=== PATIENT | female | born 1945 | race Caucasian/White ===

== ENCOUNTER 2019-09-23 09:18 | Outpatient (CLI) | payer MEDICARE, OTHER, SELFPAY ==
--- NOTE | 2019-09-23 09:28 | MM_ITS ---
WS: [id number] BILATERAL SCREENING DIGITAL MAMMOGRAM WITH CAD HISTORY: SCREENING COMPARISON: 12/25/2016 and 11/18/2013 Bilateral CC and MLO views submitted. Computer aided detection analyzed. Breast composition: There are scattered areas of fibroglandular density. No suspicious masses, microc alcifications or architectural distortion. MM/[place] [id number] IMPRESSION: BI-RADS: 1-Negative FOLLOW UP: 1 Year Follow-up
== END 2019-09-23 09:19 | disposition home or self-care (01) ==
LOC: RADSHAW 09:26
PROVIDERS: PCP Nurse Practitioner Family; Visit Provider Nurse Practitioner Family
DX: Z12.31 Encounter for screening mammogram for malignant neoplasm of breast (principal)
CPT/HCPCS: 77067

== ENCOUNTER 2022-12-04 07:39 | Outpatient (CLI) | payer MEDICARE, OTHER, SELFPAY ==
[2022-12-04 08:02] VITALS: BMI 33.5
--- NOTE | 2022-12-04 08:18 | ECG_ITS ---
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 Interpretive Statements NAME OF STUDY: EXERCISE SESTAMIBI STRESS TEST INDICATION: Chest Pain Baseline blood pressure of 188/91 mm Hg, heart rate 91 beats per minute and oxygen saturation 98%. EKG showed sinus rhythm, normal axis with poor anterior R wave progression. The patient exercised for 3 minutes and 18 seconds on a standard Miller protocol. Patient attained a maximum heart rate of 132 beats per minute(91% of the maximum predicted heart rate) with a blood pressure at the peak exercise of 205/89 mm Hg and saturation of 98%. The EKG at the peak exercise revealed sinus tachycardia with no significant ST-T wave changes. Patient did not have any chest pain or any significant arrhythmis with the exercise. Study was terminated due to maximal effort. During the recovery phase, there were no new changes. Blood pressure at the end of the recovery phase was 185/89 mm Hg with a heart rate of 89 beats per minute and oxygen saturation of 98%. CONCLUSION: 1. Normal EKG response to treadmill exercise. 2. No exercise-induced chest pain or cardiac arrhythmia. 3. Fair exercise tolerance for age, attained a maximum of 4.6 METs. 4. Baseline hypertension with normal response to exercise. 5. Perfusion scan will be documented separately. Electronically Signed On 12-04-2022 16:52:10 CDT by Columba Ni M.D. [id number]
--- NOTE | 2022-12-04 08:19 | NMCV_ITS ---
NM brenda perf SPECT r/s* [id number] Johanna Bueno Age: 77 Gender: F : 1945 Exam Date: 12/04/2022 09:07 Ordering Phys: Ketty Bertrand INVENTORY CHECKER Technologist: SERA Paz Exam Location: [facility] Indications: CHEST PAIN STRESS TEST Please see separate stress test report in [facility] for full findings IMAGE PROTOCOL Rest/Stress 1 Exercise Day Radiopharmaceutical Dose (mCi) Administration Site Administered by Rest: Tc-99m 10.9 IV SERA Young Sestamibi Stress:Tc-99m 32.6 IV SERA Paz Sestamikitty Rest: 04-Dec-2022 60 Discovery 630 Stress: 04-Dec-2022 30 Discovery 630 Radiopharmaceutical was injected at 87 % maximum heart rate. Images obtained in supine and prone position. SPECT RESULTS Technical Quality: Excellent Raw Data Analysis: Normal Image Corrections: No attenuation or motion correction applied Summed Stress Score: 0 Summed Rest Score: 0 Summed Difference Score: 0 PERFUSION FINDINGS SPECT images demonstrate homogeneous tracer distribution throughout the myocardium. FUNCTIONAL RESULTS (calculated via Gated SPECT) Stress Image LV EF (%): 71 Stress EDV (mL):93 TID: 1.04 Stress ESV (mL):27 FUNCTIONAL FINDINGS: The left ventricle is normal in size. Transient Ischemia Dilatation of 1. The left ventricular ejection fraction is normal with a value of 71%. There is normal left ventricular wall thickening. Normal end-diastolic and end-systolic volumes. IMPRESSIONS 1. Myocardial perfusion imaging is normal. 2. Overall left ventricular systolic function is normal without regional wall motion abnormalities, LVEF=71%. 3. EKG portion of the study will be reported separately. 4. Scan indicates low risk for cardiac events. Columba Ni MD (Electronically Signed) Final Date: 04 December 2022 16:46 S
[2022-12-04 10:00] VITALS: BP 185/89; PULSE 97
== END 2022-12-04 07:40 | disposition home or self-care (01) ==
LOC: CDL 07:42
PROVIDERS: PCP Nurse Practitioner Family; Visit Provider Nurse Practitioner Family
DX: R07.89 Other chest pain (principal)
CPT/HCPCS: 36415; 78452; 93017; A9500

== ENCOUNTER 2025-03-23 16:55 | Emergency (ER) | payer MEDICARE, OTHER, SELFPAY ==
[2025-03-23] VITALS (12 sets, daily range): BP systolic 125–155; BP diastolic 66–79; PULSE 9–92; RESP 16–17; TEMP 36.8; O2SAT 92–95; BMI 30.9
--- NOTE | 2025-03-23 16:58 | XRR_ITS ---
PROCEDURE INFORMATION: Exam: XR Chest Exam date and time: 03/23/2025 5:17 PM Age: 79 years old Clinical indication: Pain; Chest pressure; Additional info: Chest pain TECHNIQUE: Imaging protocol: Radiologic exam of the chest. Views: 1 view. COMPARISON: No relevant prior studies available. FINDINGS: Lungs: Mild left basilar opacity/atelectasis. Pleural spaces: Unremarkable. No pleural effusion. No pneumothorax. Heart/Mediastinum: Unremarkable. No cardiomegaly. Bones/joints: Unremarkable. XR/XR chest 1V portable [id number] IMPRESSION: Mild opacities at the left lung base.
--- OUTSIDE RECORDS SUMMARY | 2025-03-23 16:58 | XMS_ITS | Encounter Summary ---
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) Social History Tobacco Use Types Packs/Day Years Used Date Smoking Tobacco: Never Assessed Comments Unknown Sex and Gender Information Value Date Recorded Sex Assigned at Not on file 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
--- OUTSIDE RECORDS SUMMARY | 2025-03-23 16:58 | XMS_ITS | Encounter Summary ---
Author Organization [facility] Address [address] [place] [address] Care Team Providers Care Concrete Tester Name Role Phone Ten Brown MD Primary Care Provider [phone] Encounter Details Date Type Department Care Team (Latest Contact Info) Description 06/15/2002 Outpatient Historical [facility] [address] [place] [address] Evans Chacon MD NO ADDRESS ON FILE POSTMENOPAUSAL BLEEDING (Primary Dx) Social History Tobacco Use Types Packs/Day Years Used Date Smoking Tobacco: Never Assessed Comments Unknown Sex and Gender Information Value Date Recorded Sex Assigned at Not on file 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
--- OUTSIDE RECORDS SUMMARY | 2025-03-23 16:58 | XMS_ITS | Encounter Summary ---
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) Social History Tobacco Use Types Packs/Day Years Used Date Smoking Tobacco: Never Assessed Comments Unknown Sex and Gender Information Value Date Recorded Sex Assigned at Not on file 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
--- OUTSIDE RECORDS SUMMARY | 2025-03-23 16:58 | XMS_ITS | Encounter Summary ---
Author Organization [facility] Address [address] [place] [address] Care Team Providers Care Level Glass Vial Filler Name Role Phone Ten Brown MD Primary Care Provider [phone] Encounter Details Date Type Department Care Team (Latest Contact Info) Description 01/08/2007 Outpatient [facility] Dermatology- [facility] [place] [address] [place] [address] Evgeny Kaye MD NO ADDRESS ON FILE Benign Neoplasm of Skin of Other and Unspecified Parts of Face (Primary Dx) Social History Tobacco Use Types Packs/Day Years Used Date Smoking Tobacco: Never Assessed Comments Unknown Sex and Gender Information Value Date Recorded Sex Assigned at Not on file 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
--- OUTSIDE RECORDS SUMMARY | 2025-03-23 16:58 | XMS_ITS | Encounter Summary ---
Author Organization [facility] Address [address] [place] [address] Care Team Providers Care Body Joiner Name Role Phone Ten Brown MD Primary Care Provider [phone] Encounter Details Date Type Department Care Team (Latest Contact Info) Description 05/03/2000 Outpatient [facility] Dermatology- [facility] [place] [address] [place] [address] Evgeny Kaye MD NO ADDRESS ON FILE Actinic keratosis (Primary Dx) Social History Tobacco Use Types Packs/Day Years Used Date Smoking Tobacco: Never Assessed Comments Unknown Sex and Gender Information Value Date Recorded Sex Assigned at Not on file 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
--- OUTSIDE RECORDS SUMMARY | 2025-03-23 16:58 | XMS_ITS | Encounter Summary ---
Author Organization [facility] Address [address] [place] [address] Care Team Providers Care Duty Officer Name Role Phone Ten Brown MD Primary Care Provider [phone] Encounter Details Date Type Department Care Team (Latest Contact Info) Description 01/26/2005 Outpatient [facility] Dermatology- [facility] [place] [address] [place] [address] Evgeny Kaye MD NO ADDRESS ON FILE ACTINIC KERATOSIS (Primary Dx); SEBACEOUS CYST; Benign anselmo skin trunk Social History Tobacco Use Types Packs/Day Years Used Date Smoking Tobacco: Never Assessed Comments Unknown Sex and Gender Information Value Date Recorded Sex Assigned at Not on file 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
--- OUTSIDE RECORDS SUMMARY | 2025-03-23 16:58 | XMS_ITS | Encounter Summary ---
Author Organization [facility] Address [address] [place] [address] Care Team Providers Care Cutter And Paster Press Clippings Name Role Phone Ten Brown MD Primary Care Provider Reason for Referral * Outpatient Services (Routine) - Closed Specialty Diagnoses / Procedures Referred By Contac t Referred To Contact Diagnoses Pain Procedures XR FLUORO LESS THAN 1 HOUR Nany Sherman MD [address] [address] Phone: tel: fax: [facility] Pre-Registration [place] CALL TO MAKE APPOINTMENT ONLY [address] [place] [address] Phone: tel: fax: Referral ID Status Reason Start Date Expiration Date V isits Requested Visits Authorized [id number] Closed Other 02/04/2017 03/07/2018 1 1 UDER OPERATOR Encounter Details Date Type Department Care Team (Late st Contact Info) Description 02/04/2017 Ancillary Orders [facility] Radiology OR [address] [place] [address] Nany Sherman MD [address] [address] Pain Social History Tobacco Use Types Packs/Day Years Used Date Smoking Tobacco: Never Smokeless Tobacco: Never Alcohol Use Standard Drinks/Week Comments No 0 (1 standard drink = 0.6 oz pur e alcohol) Comments No Sex and Gender Information Value Date Recorded Sex Assigned at Not on file 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 Exam was auto-finalized. us Nany Sherman MD DIAGNOSTIC IMAGING ORDERAB LES Final Result documented in this encounter Visit Diagnoses Diagnosis Pain Generalized pain Pain Generalized pain documented in this encounter Care Teams Cutter And Paster Press Clippings Relationship Specialty Start Date End Date Ten Brown MD [address] [place] [address] PCP - General 05/14/08 documented as of this encounter
--- OUTSIDE RECORDS SUMMARY | 2025-03-23 16:58 | XMS_ITS | Encounter Summary ---
Author Organization [facility] Address [address] [place] [address] Care Team Providers Care Rn Endoscopy Name Role Phone Ten Brown MD Primary Care Provider [phone] Encounter Details Date Type Department Care Team (Latest Contact Info) Description 05/11/1997 Outpatient [facility] Dermatology- [facility] [place] [address] [place] [address] Evgeny Kaye MD NO ADDRESS ON FILE Actinic keratosis (Primary Dx); Benign neoplasm of skin, site unspecified Social History Tobacco Use Types Packs/Day Years Used Date Smoking Tobacco: Never Assessed Comments Unknown Sex and Gender Information Value Date Recorded Sex Assigned at Not on file 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
--- OUTSIDE RECORDS SUMMARY | 2025-03-23 16:58 | XMS_ITS | Encounter Summary ---
Author Organization [facility] Address [address] [place] [address] Care Team Providers Care Life Insurance Underwriter Name Role Phone Ten Brown MD Primary Care Provider [phone] Encounter Details Date Type Department Care Team (Latest Contact Info) Description 03/03/2001 Outpatient [facility] Dermatology- [facility] [place] [address] [place] [address] Evgeny Kaye MD NO ADDRESS ON FILE Benign anselmo skin trunk (Primary Dx); SEBORRHEIC KERATOSIS NOS; PERS HX SKIN MALIGNANCY NEC; Inflamed seborr keratos Social History Tobacco Use Types Packs/Day Years Used Date Smoking Tobacco: Never Assessed Comments Unknown Sex and Gender Information Value Date Recorded Sex Assigned at Not on file 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 Gender Identity Not on file Sexual Orientation Not on file documented as of this encounter Plan of Treatment Not on file documented as of this encounter Visit Diagnoses Diagnosis Benign anselmo skin trunk- Primary Benign neoplasm of skin of trunk, except scrotum Other seborrheic keratosis Personal history of other malignant neoplasm of skin Inflamed seborr keratos Inflamed seborrheic keratosis documented in this encounter Care Teams Life Insurance Underwriter Relationship Specialty Start Date End Date Ten Brown MD [address] [place] [address] PCP - General 05/14/08 documented as of this encounter
--- OUTSIDE RECORDS SUMMARY | 2025-03-23 16:58 | XMS_ITS | Clinical Summary ---
Author Organization [facility] Address [address] [place] [address] Care Team Providers Care Second Worker Name Role Phone Ten Brown MD Primary Care Provider [phone] Allergies No known active allergies Medications hydrochlorothiaz satya 25 mg Oral tablet Take 25 mg by mouth daily. Active calcium-vitamin D3 (CALTRATE 600+D) 600 mg(1,500mg) -200 unit Tablet Take 1 Tablet by mouth daily. Active lysine 1,000 mg Tablet Take 1,000 mg by mouth daily parts inspector. Active LACTOBACILLUS COMBINATION NO.8 (ADULT PROBIOTIC ORAL) Take 1 Capsule by mouth daily parts inspector. Active acetaminophen (TYLENOL) 500 mg tablet Take 500 mg by mouth every 6 hours as needed. Active HYDROcodone-acet aminophen (NORCO) 7.5-325 mg Tablet Take 1 Tablet by mouth every 6 hours as needed for Pain, Moderate. Max Daily Amount: 4 Tablets 20 Tablet 01/31/2017 Active Active Problems Problem Noted Date Diagnosed Date Actinic keratosis 05/14/2008 Other seborrheic keratosis 05/14/2008 Intradermal nevus 05/14/2008 Social History Tobacco Use Types Packs/Day Years Used Date Smoking Tobacco: Never Smokeless Tobacco: Never Tobacco Cessation:Counseling Given: No Alcohol Use Standard Drinks/Week Comments No 0 (1 standard drink = 0.6 oz pur e alcohol) Comments No Sex and Gender Information Value Date Recorded Sex Assigned at Not on file Legal Sex Female 4:21 AM PAPERHANGER Gender Identity Not on file Sexual Orientation Not on file Last Filed Vital Signs Vital Sign Reading Time Taken Comments Blood Pressure 183/92 02/11/2017 9:27 AM PAPERHANGER Pulse 65 02/11/2017 9:27 AM PAPERHANGER Temperature 36.6 C (97.9 F) 01/31/2017 2:30 PM PAPERHANGER Respiratory Rate 20 01/31/2017 3:00 PM PAPERHANGER Oxygen Saturation 98% 01/31/2017 3:00 PM PAPERHANGER Inhaled Oxygen Concentration - - Weight 77.1 kg (169 lb 15.6 oz) 02/11/2017 9:27 AM PAPERHANGER Height 167.6 cm (5' 6 ) 02/11/2017 9:27 AM PAPERHANGER Body Mass Index 27.43 02/11/2017 9:27 AM PAPERHANGER Plan of Treatment Health Maintenance Due Date Last Done Comments DTAP/TDAP/TD VACCINES (1 - Tdap) 06/24/1966 PNEUMOCOCCAL VACCINE 50+ YEARS (1 of 1 - PCV) 06/24/18 98 ZOSTER VACCINE (1 of 2) 06/24/1997 OSTEOPOROSIS SCREENING 06/24/2012 RSV VACCINE (60+ or ) (1 - 1-dose 75+ series) 06/24/2022 INFLUENZA VACCINE (#1) [address] [place] [address] MEDICARE PART A AND B GENERIC PAYOR Advance Directives For more information, please contact: [phone] * Full Code (Latest Code Status on File) Date Activated Date Inactivated Comments 01/31/2017 1:25 PM 01/31/2017 6:05 PM Care Teams Second Worker Relationship Specialty Start Date End Date Ten Brown MD [address] [place] [address] PCP - General 05/14/08
--- OUTSIDE RECORDS SUMMARY | 2025-03-23 16:58 | XMS_ITS | Encounter Summary ---
Author Organization [facility] Address [address] [place] [address] Care Team Providers Care Bottle Washer Name Role Phone Ten Brown MD Primary Care Provider [phone] Encounter Details Date Type Department Care Team (Latest Contact Info) Description 12/27/2006 Outpatient Historical [facility] Dermatology- [facility] [place] [address] [place] [address] Evgeny Kaye MD NO ADDRESS ON FILE Actinic Keratosis (Primary Dx); Benign Neoplasm of Skin of Other and Unspecified Parts of Face; Other Seborrheic Keratosis Social History Tobacco Use Types Packs/Day Years Used Date Smoking Tobacco: Never Assessed Comments Unknown Sex and Gender Information Value Date Recorded Sex Assigned at Not on file 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
--- OUTSIDE RECORDS SUMMARY | 2025-03-23 16:58 | XMS_ITS | Encounter Summary ---
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) Social History Tobacco Use Types Packs/Day Years Used Date Smoking Tobacco: Never Assessed Comments Unknown Sex and Gender Information Value Date Recorded Sex Assigned at Not on file Legal Sex Female 4:21 AM INVENTORY AND PRICING ASSOCIATE Gender Identity Not on file Sexual Orientation Not on file documented as of this encounter Plan of Treatment Not on file documented as of this encounter Visit Diagnoses Diagnosis Other and unspecified malignant neoplasm of skin of other and unspecified parts of face- Primary documented in this encounter Care Teams Ornamental Ironworking Supervisor Relationship Specialty Start Date End Date Ten Brown MD [address] [place] [address] PCP - General 05/14/08 documented as of this encounter
--- OUTSIDE RECORDS SUMMARY | 2025-03-23 16:58 | XMS_ITS | Clinical Summary ---
Author Organization [facility] Address [address] [facility] Attn: Epic Prelude ADT EDUARD RUIZ [id number] Care Team Providers Care Clinical Scientist Name Role Phone Ten Brown MD Primary Care Provider [phone] Allergies No known active allergies Medications lysine 1,000 mg Tablet Take 1,000 mg by mouth daily early childhood associate. 01/28/2017 Active acetaminophen (TYLENOL) 500 mg tablet Take 500 mg by mouth every 6 hours as needed. 01/28/2017 Active lactobacillus combination no.8 (ADULT PROBIOTIC ORAL) Take 1 Capsule by mouth daily early childhood associate. 01/28/2017 Active calcium-vitamin D3 (CALTRATE 600+D) 600 mg-5 mcg (200 unit) Tablet Take 1 Tablet by mouth daily. 01/28/2017 Active HYDROcodone-acet aminophen (NORCO) 7.5-325 mg Tablet Take 1 Tablet by mouth every 6 hours as needed for Pain, Moderate. Max Daily Amount: 4 Tablets 20 Tablet 0 01/31/2017 Active Active Problems Problem Noted Date Diagnosed Date Other seborrheic keratosis 05/14/2008 Actinic keratosis 05/14/2008 Intradermal nevus 05/14/2008 Social History Tobacco Use Types Packs/Day Years Used Date Smoking Tobacco: Never Smokeless Tobacco: Never Alcohol Use Standard Drinks/Week Comments No 0 (1 standard drink = 0.6 oz pur e alcohol) Comments Unknown Sex and Gender Information Value Date Recorded Sex Assigned at Not on file Legal Sex Female 5:06 PM REGISTERED NURSE CARDIAC Gender Identity Not on file Sexual Orientation Not on file Last Filed Vital Signs Vital Sign Reading Time Taken Comments Blood Pressure 183/92 02/11/2017 9:27 AM REGISTERED NURSE CARDIAC Pulse 65 02/11/2017 9:27 AM REGISTERED NURSE CARDIAC Temperature 36.6 C (97.9 F) 01/31/2017 2:30 PM REGISTERED NURSE CARDIAC Respiratory Rate 20 01/31/2017 3:00 PM REGISTERED NURSE CARDIAC Oxygen Saturation - - Inhaled Oxygen Concentration - - Weight 77.1 kg (169 lb 15.6 oz) 02/11/2017 9:27 AM REGISTERED NURSE CARDIAC Height 167.6 cm (5' 6 ) 02/11/2017 9:27 AM REGISTERED NURSE CARDIAC Body Mass Index 27.43 02/11/2017 9:27 AM REGISTERED NURSE CARDIAC Plan of Treatment Health Maintenance Due Date Last Done Comments DTAP/TDAP/TD VACCINES (1 - Tdap) 06/24/1966 PNEUMOCOCCAL VACCINE 50+ YEARS (1 of 1 - PCV) 06/24/18 98 ZOSTER VACCINE (1 of 2) 06/24/1997 OSTEOPOROSIS SCREENING 06/24/2012 RSV VACCINE (60+ or ) (1 - 1-dose 75+ series) 06/24/2022 INFLUENZA VACCINE (#1) 2024 Care Teams Clinical Scientist Relationship Specialty Start Date End Date Ten Brown MD [address] [place] [address] PCP - General 05/14/08
[2025-03-23 17:22] LABS: Hematocrit 38.6 % (36-47); Hemoglobin 13.30 g/dL (11.27-16.99); Mean Corpuscular HGB Conc 34.5 g/dL (30-55); Mean Corpuscular Hemoglobin 29.2 pg (27-33); Mean Corpuscular Volume 84.8 fl (85-98); Nucleated Red Blood Cells % 0 %; Platelet Count 242 10^3/cmm (157-399); Red Blood Count 4.55 10^6/uL (3.85-5.65); White Blood Count 12.48 10^3/uL (3.29-11.43)
--- NOTE | 2025-03-23 17:28 | W.ED.CHESTPA ---
HPI - Chest Pain General: Chief Complaint: Chest Pain Stated Complaint: buring and pain in chest Time Seen by Provider: 03/23/25 17:13 History of Present Illness: 79-year-old female presents emergency room complaining of epigastric and chest comfort. She has had this intermittently for a few weeks. She has previously seen her primary care doctor started omeprazole symptoms resolved since she stopped it began to resume again she has noted that with particular foods especially acidic foods hot or spicy foods that worsen that she has not noticed an association with exertion. No radiation of the pain no shortness of breath she had 1 episode of vomiting earlier today no coffee-ground emesis or hematemesis Associated symptoms: Reports abdominal pain, nausea and vomiting (X 1); Deny dyspnea or fever(s) Related Data Allergies Allergy/AdvReac Type Severity Reaction Status Date / Time SHOAIB Inhibitors Allergy Unknown Verified 12/04/22 08:20 Review of Systems Const: Denies: fever(s) or chills Card: Reports: chest pain Resp: Denies: dyspnea GI: Reports: abdominal pain, nausea and vomiting (X 1); Denies: hematemesis or coffee ground emesis : Denies: dysuria, urinary frequency or urinary urgency Musc: Denies: neck pain or back pain Skin/Breast: Denies: rash Physical Exam Const: COMMON NORMALS: no acute distress GENERAL APPEARANCE: cooperative and comfortable ORIENTATION/CONSCIOUSNESS: Yes awake, Yes oriented to person, Yes oriented to place and Yes oriented to time HENMT: COMMON NORMALS: normocephalic, atraumatic and hearing grossly normal bilaterally HEAD & SCALP: normocephalic and atraumatic Resp: COMMON NORMALS: normal respiratory effort, No retractions, No use of accessory muscles and clear to auscultation bilaterally AUSCULTATION: clear to auscultation bilaterally Cardio: COMMON NORMALS: regular rate, regular rhythm and No murmurs present (Cardio) RATE: regular rate RHYTHM: regular rhythm GI: COMMON NORMALS: Soft to palpation and No hepatosplenomegaly present AUSCULTATION: Yes normoactive bowel sounds PALPATION: Yes Soft to palpation, No Tenderness to palpation present (GI), No Guarding due to palpation present (GI) and Yes No hepatosplenomegaly present Extremity: COMMON NORMALS: normal to inspection, capillary refill normal, no clubbing, cyanosis or edema, no calf tenderness and no pedal edema Neuro: SENSORIUM/ORIENTATION: Yes oriented to person, Yes oriented to place and Yes oriented to time Skin: COMMON NORMALS: no rashes or lesions noted GENERAL SKIN EXAM: no rashes or lesions noted Course Vital Signs: Vital signs: Vital Signs Temperature 98.3 F 03/23/25 16:58 Pulse Rate 84 03/23/25 20:00 Respiratory Rate 17 03/23/25 17:28 Blood Pressure 155/76 03/23/25 20:00 Pulse Oximetry 95 03/23/25 20:00 Oxygen Delivery Me thod Room Air 03/23/25 20:00 MDM - Chest Pain Medical Decision Making Differential diagnosis acute coronary syndrome gastroesophageal reflux disease gastric ulcer peptic ulcer acute cholecystitis pneumonia Patient unchanged on repeat exam. She is awake alert and oriented still has epigastric right upper quadrant abdominal pain liver enzymes markedly elevated. Labs reviewed as found in the chart white count 12 8 with left shift. Mild hypokalemia with potassium of 3 T. bili at 4.6 AST 513 ALT 590 alk phos 232. Lipase 3510. Lactic acid 1.6. Cardiac enzymes trending negative. EKG does not show any acute changes. Patient has acute choledocholithiasis with signs of a ascending colon Williams. Will transfer for ability to perform ERCP which she which she will likely need. Patient given IV fluids and started on Zosyn. Being arranged to transfer to [facility] in [place]. Dr. Hernandez has excepted patient on transfer. Medical Records I reviewed the patient's medical records. Lexiscan sestamibi stress test December 04, 2022 IMPRESSIONS 1. Myocardial perfusion imaging is normal. 2. Overall left ventricular systolic function is normal without regional wall motion abnormalities, LVEF=71%. 3. EKG portion of the study will be reported separately. 4. Scan indicates low risk for cardiac events. Columba Ni MD (Electronically Signed) Final Date: 04 December 2022 Lab Data I reviewed the patient's lab results. 03/23/25 17:13 03/23/25 17:13 Radiology Impressions Chest X-Ray 03/23/25 16:58 IMPRESSION: Mild opacities at the left lung base. Gallbladder Ultrasound 03/23/25 18:15 IMPRESSION: 1. Findings consistent with acute calculous cholecystitis. 2. Biliary dilatation both extrahepatic and to a lesser extent intrahepatic. 3. Diffuse fatty liver. Laboratory Results WBC 12.48 10^3/uL (3.29-11.43) H 03/23/25 17:13 RBC 4.55 10^6/uL (3.85-5.65) 03/23/25 17:13 Hgb 13.30 g/dL (11.27-16.99) 03/23/25 17:13 Hct 38.6 % (36-47) 03/23/25 17:13 MCV 84.8 fl (85-98) L 03/23/25 17:13 MCH 29.2 pg (27-33) 03/23/25 17:13 MCHC 34.5 g/dL (30-55) 03/23/25 17:13 RDW 12.5 % (12.1-15.1) 03/23/25 17:13 Plt Count 242 10^3/cmm (157-399) 03/23/25 17:13 MPV 9.7 fL (7.4-10.4) 03/23/25 17:13 Neut % (Auto) 91.2 % 03/23/25 17:13 Lymph % (Auto) 5.6 % 03/23/25 17:13 [place] % (Auto) 2.4 % 03/23/25 17:13 Eos % (Auto) 0.0 % 03/23/25 17:13 Baso % (Auto) 0.2 % 03/23/25 17:13 Neut # (Auto) 11.38 10^3/uL (1.8-7.7) H 03/23/25 17:13 Lymph # (Auto) 0.7 10^3/uL (0.8-4.8) L 03/23/25 17:13 [place] # (Auto) 0.3 10^3/uL (0.2-0.9) 03/23/25 17:13 Eos # (Auto) 0.0 10^3/uL (0.0-0.8) 03/23/25 17:13 Baso # (Auto) 0.0 10^3/uL (0.0-0.1) 03/23/25 17:13 Nucleated RBC % (auto) 0 % 03/23/25 17:13 Nucleated RBCs # 0.0 /100WBC 03/23/25 17:13 Sodium 140 mmol/L (136-145) 03/23/25 17:13 Potassium 3.0 mmol/L (3.5-5.1) L 03/23/25 17:13 Chloride 100 mmol/L (98-107) 03/23/25 17:13 Carbon Dioxide 26 mmol/L (22-29) 03/23/25 17:13 Anion Gap 17.0 (5-19) 03/23/25 17:13 BUN 16 mg/dL (8-23) 03/23/25 17:13 Creatinine 0.8 mg/dL (0.5-0.9) 03/23/25 17:13 GFR Calculation Not Reportable 03/23/25 17:13 Glucose 120 mg/dL (65-115) H 03/23/25 17:13 Calculated Osmolality 292 mOsm/kg (285-295) 03/23/25 17:13 Lactic Acid 1.6 mmol/L (0.5-2.2) 03/23/25 17:13 Calcium 9.9 mg/dL (8.5-10.5) 03/23/25 17:13 Total Bilirubin 4.6 mg/dL (0.15-1.2) H 03/23/25 17:13 AST 513 U/L (0-32) H 03/23/25 17:13 ALT 590 U/L (0-33) H 03/23/25 17:13 Alkaline Phosphatase 232 U/L (35-105) H 03/23/25 17:13 Troponin T Baseline 15 ng/L (0-10) H 03/23/25 17:13 Troponin T 60 Minute 14.70 ng/L (0-10) H 03/23/25 18:08 Delta Troponin T -0.30 ABS# (0-10) L 03/23/25 18:08 NT-Pro-B Natriuret Pep 255 pg/mL (0-450) 03/23/25 17:13 Total Protein 6.3 g/dL (6.6-8.7) L 03/23/25 17:13 Albumin 4.4 g/dL (3.5-5.2) 03/23/25 17:13 Globulin 1.9 g/dL (1.3-4.6) 03/23/25 17:13 Lipase 3510 U/L (13-60) H 03/23/25 17:13 All radiology interpretation(s) finalized by discharge EKG Data EKG 1: I personally reviewed and interpreted this EKG as follows: Interpretation: EKG done 03/23/2025 [address] changes no acute ST elevation. Rate of 87 AL interval 153 QTc 402 Discharge Plan Discharge Patient Disposition: Xfer Short-Term Hosp Clinical Impression: Choledocholithiasis with acute cholecystitis with obstruction Condition: Stable Referrals: Bertrand,PER Hdez [Primary Care Provider, Nurse Practitioner] Print Language: Sammarinese Coding Level of Care Code ED Shop Hand for Chg Fwd Heart Score HEART Score Components History: Slightly Suspicous EKG: Normal Age: 65 or more yrs Risk Factors: 1 or 2 Risk Factors Troponin: Baseline Trop <16 ng/L HEART Score RESULT HEART Score: 3
[2025-03-23] MEDS: lidocaine 2% viscous 15 ML, aluminum-mag hydrox-simethicon 30 ML, sucralfate oral liq 1 GM PO (17:36)
[2025-03-23 17:41] LABS: Troponin(5th) Baseline 15 ng/L (0-10)
[2025-03-23] MEDS: ondansetron 2 mg/ML SDV 2 mL 4 MG IVP ×2 (17:56→20:37)
--- NOTE | 2025-03-23 17:58 | ECG_ITS ---
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 Measurements Intervals [place] Rate: 87 P: 45 PA: 153 QRS: -11 QRSD: 88 T: 12 QT: 358 QTc: 431 Interpretive Statements SINUS RHYTHM NONSPECIFIC ST & T-WAVE ABNORMALITY No previous ECG available for comparison Electronically Signed On 03-25-2025 17:14:51 SOFT MUD MOLDER by Jose Raul Campos M.D. [email or web address]
[2025-03-23 17:59] LABS: Alanine Aminotransferase 590 U/L (0-33); Albumin Level 4.4 g/dL (3.5-5.2); Alkaline Phosphatase 232 U/L (35-105); Anion Gap 17.0 (5-19); Aspartate Amino Transferase 513 U/L (0-32); Blood Urea Nitrogen 16 mg/dL (8-23); Calcium 9.9 mg/dL (8.5-10.5); Carbon Dioxide 26 mmol/L (22-29); Chloride 100 mmol/L (98-107); Globulin 1.9 g/dL (1.3-4.6); Glucose 120 mg/dL (65-115); NT Pro B Type Natriuretic Pept 255 pg/mL (0-450); Osmolality Calculated 292 mOsm/kg (285-295); Potassium 3.0 mmol/L (3.5-5.1); Sodium 140 mmol/L (136-145); Total Protein 6.3 g/dL (6.6-8.7)
--- NOTE | 2025-03-23 18:04 | PC.NURSE ---
Pt states she doesn't know if the GI cocktail worked or not, pt states shortly afterwards pt had nausea and had emesis. Pt family continues to answer questions for pt.
--- NOTE | 2025-03-23 18:15 | USR_ITS ---
PROCEDURE INFORMATION: Exam: US Abdomen, Limited; Right Upper Quadrant Exam date and time: 03/23/2025 6:32 PM Age: 79 years old Clinical indication: Other: Elevated lfts TECHNIQUE: Imaging protocol: Real time ultrasound of the abdomen with image documentation. Limited exam focused on the right upper quadrant. COMPARISON: No relevant prior studies available. FINDINGS: Liver: Increased hepatic echotexture diffusely consistent with fatty infiltration. No focal lesion. Mild intrahepatic biliary dilatation. Gallbladder: Multiple gallstones are seen along with gallbladder sludge or debris. Gallbladder wall thickening measuring up to 6 mm. Sonographic Herrera's sign is positive. Biliary ducts: Dilatation of the extrahepatic bile duct measuring up to 1.4 cm. No definite filling defects. Pancreas: Visualized pancreas is unremarkable. Right kidney: Right kidney is unremarkable without hydronephrosis. US/US gall bladder [id number] IMPRESSION: 1. Findings consistent with acute calculous cholecystitis. 2. Biliary dilatation both extrahepatic and to a lesser extent intrahepatic. 3. Diffuse fatty liver.
--- NOTE | 2025-03-23 18:21 | PC.NURSE ---
Pt reports nausea is better.
[2025-03-23 18:46] LABS: Lactic Sepsis W/Reflex 1.6 mmol/L (0.5-2.2)
[2025-03-23] MEDS: piperacillin-tazobactam 3.375 GM in sodium chloride 0.9% (plus) 50 ML IV (19:35)
[2025-03-23 19:43] LABS: Lipase 3510 U/L (13-60)
[2025-03-23] MEDS: HYDROmorphone 0.5 MG/0.5 ML INJ IVP (20:37)
[2025-03-24 08:03] LABS: Bacteroides fragilis Not Detected (NOT DETECT); CTX-M Not Detected (NOT DETECT); Citrobacter Not Detected (NOT DETECT); Cronobacter sakazakii Not Detected (NOT DETECT); Enterobacter non cloacae Not Detected (NOT DETECT); Fusobacterium necrophorum Not Detected (NOT DETECT); Fusobacterium nucleatum Not Detected (NOT DETECT); IMP Resistance Gene Not Detected (NOT DETECT); KPC Resistance Gene Not Detected (NOT DETECT); Klebsiella pneumoniae group Not Detected (NOT DETECT); Morganella morganii Not Detected (NOT DETECT); NDM Resistance Gene Not Detected (NOT DETECT); OXA Resistance Gene Not Detected (NOT DETECT); Pan Candida Not Detected (NOT DETECT); Pan Gram-Positive Not Detected (NOT DETECT); Proteus mirabilis Not Detected (NOT DETECT); Serratia Not Detected (NOT DETECT); Serratia marcescens Not Detected (NOT DETECT); Stenotrophomonas maltophilia Not Detected (NOT DETECT); VIM Resistance Gene Not Detected (NOT DETECT)
--- NOTE | 2025-03-24 10:55 | PC.NURSE ---
communicated via telephone to receiving facility [facility] in [facility] regarding preliminary blood culture results. faxed this information over and informed RN of these results who verbalized understanding.
== END 2025-03-23 21:35 | disposition short-term general hospital (02) ==
PROVIDERS: Physician Assistant; Emergency Provider Family Medicine; PCP Nurse Practitioner Family
DX: K80.43 Calculus of bile duct with acute cholecystitis with obstruction (principal)
CPT/HCPCS: 36415; 71045; 76705; 80053; 83605; 83690; 83880; 84484; 85025; 87040; 87077; 87150; 87186; 87205; 93005; 96365; 96375; 96376; 99285; J1171; J2405; J2543; J9999